=== PATIENT | male | born 2000 | race African-American/Black ===

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

== ENCOUNTER 2019-01-20 00:38 | Emergency (ER) | payer MEDICAID ==
[2019-01-20 00:49] VITALS: Ht 180.3 cm
[2019-01-20] MEDS ORDERED: HYDROCODON-ACE1 EAC2 PO (01:53)
[2019-01-20 02:50] VITALS: BP 128/69
== END 2019-01-20 02:51 | disposition home or self-care (01) ==
LOC: D.ER 00:38
DX: S61.411A Laceration without foreign body of right hand, initial encounter (principal); W25.XXXA Contact with sharp glass, initial encounter; Y93.89 Activity, other specified; Y92.89 Other specified places as the place of occurrence of the external cause